=== PATIENT | male | born 1960 | race Caucasian/White ===

== ENCOUNTER 2017-02-20 04:11 | Observation (INO) | payer OTHER ==
[~2017-02-20] VITALS: Ht 185.4 cm; Wt 120.6 kg
--- NOTE | ~2017-02-20 | EKG ---
PATIENT: ADWOA ZUNIGA UNIT #: [id number] Ventricular Rate: 54 BPM Atrial Rate: 54 BPM P-R Interval: 184 ms QRS Duration: 94 ms Q-T Interval: 444 ms QTC Calculation(Bezet): 421 ms P [place]: 26 degrees Calculated R [place]: 7 degrees Calculated T [place]: 28 degrees Diagnosis Line: Sinus bradycardia Diagnosis Line: Otherwise normal ECG Diagnosis Line: When compared with ECG of 21-OCT-2011 20:20, Diagnosis Line: Vent. rate has decreased BY 26 BPM Diagnosis Line: Nonspecific T wave abnormality now evident in Diagnosis Line: Inferior leads Diagnosis Line: Confirmed by REJI DURBIN MD ([id number]) on Diagnosis Line: 02/20/2017 2:02:24 PM INTERPRETING MD: GIFYT RIOS
--- NOTE | ~2017-02-20 | EKG ---
PATIENT: ADWOA ZUNIGA UNIT #: [id number] Ventricular Rate: 48 BPM Atrial Rate: 48 BPM P-R Interval: 196 ms QRS Duration: 106 ms Q-T Interval: 424 ms QTC Calculation(Bezet): 378 ms P [place]: 48 degrees Calculated R [place]: 44 degrees Calculated T [place]: 48 degrees Diagnosis Line: Marked sinus bradycardia Diagnosis Line: Early repolarization Diagnosis Line: Abnormal ECG Diagnosis Line: When compared with ECG of 21-FEB-2017 05:46, Diagnosis Line: (unconfirmed) Diagnosis Line: No significant change was found Diagnosis Line: Confirmed by VIKAS RUIZ MD ([id number]) on Diagnosis Line: 02/22/2017 9:37:07 AM INTERPRETING MD: SARA RIOS
--- NOTE | ~2017-02-20 | HP ---
Unit #: [id number] #: [id number] Patient: ADWOA ZUNIGA [id number] [facility]. [place], [place] [address] [id number] E MR#: [id number] NAME: ADWOA ZUNIGA ROOM: Age: 56 Sex: M Admission Date: 02/20/2017 : 1960 Attending Physician: Miguel Scott M.D. Primary Care Physician: Helder Jorgensen M.D. HISTORY AND PHYSICAL HISTORY OF PRESENT ILLNESS This 56-year-old white male patient, woke up this morning with moderately severe pressure in the middle of the chest, worse when taking a deep breath, and lays down, it radiates to the left arm, associated with the tingling of the arms. The patient was dyspneic. He has no diaphoresis. He has history of SVT and ablation about ten years ago by Dr. Guzman. He denies any hypertension, diabetes, or (1) . EKG is normal. CT scan of the chest negative for PE protocol, troponins are negative. Previously he smoked five cigarettes per day for several years, quit six years ago. 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 FAMILY HISTORY Mother has congestive heart failure on pacemaker. ALLERGIES No known drug allergies. PAST SURGERIES 1. Cervical fusion in November 2016. 2. Patient had history of heart catheterization three or four years ago at [facility] and apparently had no blockages. HOME MEDICATIONS Include Toprol XL REVIEW OF SYSTEMS CONSTITUTIONAL: No fevers, chills, night sweats, or weight loss. All is negative except as mentioned above. PHYSICAL EXAMINATION GENERAL APPEARANCE: The patient is well-developed. VITAL SIGNS: Blood pressure 133/82, heart rate 62 per minute, respiratory rate 16 per minute. HEENT: Mouth: Oral mucosa is without cyanosis or pallor. No xanthelasma. NECK: No jugular venous distention. CARDIOVASCULAR: Regular rate and rhythm. PMI is not displaced on auscultation. S1 and S2 normal. No S3 or S4. No murmurs, rubs, or clicks noted. VASCULAR: Carotids are brisk without bruit. Abdominal aorta without bruits. Femoral and pedal pulses are normal, within normal pulse amplitude. LUNGS: Clear to auscultation without rales, rhonchi, or wheezes, or accessory muscle use noted. ABDOMEN: Soft and nontender. No hepatosplenomegaly. Unit #: [id number] #: [id number] Patient: ADWOA ZUNIGA SR RECTAL: Deferred. EXTREMITIES: Warm and dry. No cyanosis or clubbing. No pedal edema. MUSCULOSKELETAL: No scoliosis. DERMATOLOGY: No stasis dermatitis. NEUROLOGIC: Alert and oriented x3, pleasant affect. DIAGNOSTIC STUDIES LABORATORY: Glucose 99, BUN 18, creatinine 0.9, sodium 137, potassium 3.6. WBC 6.7, hemoglobin 13.2, hematocrit is 39.6, platelet count 212,000. IMPRESSION Chest pain possible pericarditis, rule out coronary artery disease, history of SVT and ablation. PLAN The patient's EKG and cardiac enzymes will be monitored, will get an echocardiogram and schedule him for a Lexiscan Cardiolite study in the morning. Dictated by Angelic Capps/jadiel TD: 02/20/2017 10:56 JOB #: [id number] HISTORY AND PHYSICAL Page 1 of 1 X Ana Christy MD HISTORY AND PHYSICAL
--- NOTE | ~2017-02-20 | CT16 ---
[facility] A Service of [facility] RADIOLOGY TEXT RESULTS PATIENT: ADWOA ZUNIGA LOCATION: [facility] [id number] : [birth year] UNIT #: [id number] AGE: [address]: Ana Christy MD SEX: M ORDER DR: [id number] [place], [place] [address] [id number] E MR#: [id number] Acc #: [id number] NAME: ADWOA ZUNIGA, : 1960 SEX: M STUDY DATE/TIME: 02/20/2017 7:17 UNIT: CASIMIRO ROOM: STUDY DESCRIPTION: CT Angio Chest for PE Attending Physician: Miguel Scott M.D. Ordering Physician: [facility] Primary Care Physician: Helder Jorgensen M.D. MEDICAL IMAGING REPORT This report is preliminary unless electronic signature is present EXAM CTA chest INDICATIONS Chest pain. Prominence of the chest. TECHNIQUE CT angiography of the chest utilizing 100 mL Isovue-370 IV contrast. Coronal 3-D MIP reconstructions and standard sagittal reconstructions were obtained. This CT exam was performed with one or more of the following radiation dose reduction techniques: automatic exposure control, adjustment of mA and/or kV according to patient size, and iterative reconstruction. COMPARISON Chest radiograph 02/20/2017 and 09/11/2016. FINDINGS No pulmonary embolus. No thoracic aortic aneurysm or dissection. No pericardial or pleural effusion. No enlarged mediastinal or hilar lymph nodes. There are several noncalcified pulmonary nodules scattered throughout both lungs. These are likely benign granulomas. There is an index 5 mm lesion in the superior segment right lower lobe (image 77). There is a second index lesion in the anterior right upper lobe measuring 0.5 cm on image 70. Central airways are patent. No acute osseous abnormalities. Limited images of the upper abdomen were obtained. No acute findings. IMPRESSION [facility] A Service of [facility] & [facility] RADIOLOGY TEXT RESULTS PATIENT: ADWOA ZUNIGA LOCATION: [facility] [id number] : [birth year] UNIT #: [id number] AGE: [address]: Ana Christy MD SEX: M ORDER DR: 1. Negative for pulmonary embolus. 2. No acute findings in the chest. 3. Multiple small pulmonary nodules scattered throughout both lungs. These are likely benign granulomas, however I would recommend precautionary follow-up study in 6-12 months to further evaluate and confirm a benign etiology. Dictated by... Yemi Woods M.D. THIS IS AN ELECTRONICALLY VERIFIED REPORT Yemi Woods M.D. at 02/20/2017 2:14 PM RPC/betsy TD: 02/20/2017 09:41 JOB #: [id number] MEDICAL IMAGING REPORT Page 1 of 1 COPY
--- NOTE | ~2017-02-20 | DS ---
Unit #: [id number] #: [id number] Patient: ADWOA ZUNIGA [id number] [address] [id number] I MR#: [id number] NAME: ADWOA ZUNIGA SR ROOM: 565 Age: 56 Sex: M Admission Date: 02/20/2017 : 1960 Discharge Date: 02/22/2017 Attending Physician: Ana Christy M.D. Primary Care Physician: Helder Jorgensen M.D. DISCHARGE SUMMARY DISCHARGE DIAGNOSES 1. Atypical chest pain, possible precordial. 2. Multiple small lung nodules. 3. Asymptomatic sinus bradycardia. 4. Ejection fraction 55%. 5. Chronic pain syndrome. 6. History of supraventricular tachycardia, status post ablation. PROCEDURES 1. The patient had a 2D echocardiogram on February 20, 2017, which showed left ventricle is normal in size. No regional wall motion abnormalities, mild concentric left ventricular hypertrophy. Overall left ventricular function is normal with an EF of 55%. No evidence of left ventricular mass or thrombus noted. Tricuspid valve is structurally normal. 2. The patient underwent a Lexiscan Cardiolite stress test which showed no ischemia. HOSPITAL COURSE The patient is a 56-year-old man who presented to the hospital after he woke up with severe chest pressure in the middle of his chest that was work with taking a deep breath lying down that radiated to his left arm. He also has some complaint that he had tingling sensation of both of his arms and was dyspneic. He had no diaphoresis. He presented to the emergency department for further workup. The patient underwent a Lexiscan Cardiolite stress test which was normal. He underwent a 2D echocardiogram which was essentially normal and showed an EF of 55%. Likely, the source of patient's chest pain is atypical musculoskeletal versus pericardial. The patient was started on colchicine and had shown improvement in his chest pain. Today, the patient is awake, alert, in no acute distress. Dr. Mchugh has seen and evaluated the patient. Vital signs are temperature 98.5, heart rate 48, respirations 18, blood pressure 112/63, oxygenating 97%. He is hemodynamically stable and ready for discharge per Dr. Mchugh. DISCHARGE FOLLOWUP INSTRUCTIONS 1. The patient will be discharged home. 2. Patient will follow with Dr. Guzman in four weeks. 3. Healthy heart diet. 4. Activity as tolerated. 5. Patient to seek medical attention or return to the ER if signs or symptoms worsen. Unit #: [id number] #: [id number] Patient: ADWOA ZUNIGA SR DISCHARGE MEDICATIONS 1. Toprol XL 12.5 mg p.o. daily. 2. Colchicine 0.6 mg p.o. b.i.d. for four weeks. 3. Lipitor 20 mg p.o. daily. 4. Aspirin 81 mg p.o. daily. Time spent - 25 minutes. Dictated by... Renetta Zuniga A.P.R.N. for Alma Mchugh M.D. AM/delbert TD: 02/22/2017 11:48 JOB #: [id number] DISCHARGE SUMMARY Page 1 of 1 X Renetta Zuniga APRN X DISCHARGE SUMMARY
--- NOTE | ~2017-02-20 | ST ---
Unit #: [id number] #: [id number] Patient: ADWOA ZUNIGA SR [id number] [address] [id number] I MR#: [id number] NAME: ADWOA ZUNIGA SR : 1960 SEX: M STUDY DATE/TIME: 02/21/2017 UNIT: [facility] ROOM: 565 STUDY DESCRIPTION: Attending Physician: Ana Christy M.D. Primary Care Physician: Helder Jorgensen M.D. CARDIOLOGY REPORT EXAM Lexiscan Cardiolite stress test FINDINGS The baseline EKG shows sinus bradycardia with a rate of 54 beats per minute with ST elevation in AVL, as well as the anterior leads most consistent with early repolarization. Lexiscan was injected immediately followed by Cardiolite. The patient had complaint of chest pain, that has been constant since the prior day rated 3/10 with no changes during the test. He has significant nausea. Lexiscan was injected immediately followed by Cardiolite. Maximum blood pressure response was 125/70 mmHg. In the recovery, blood pressure 120/68 mmHg. Please correlate these results with the nuclear images. Dictated by... Quinn Harp TD: 02/21/2017 15:47 JOB #: [id number] CARDIOLOGY REPORT Page 1 of 1 X Anderson Dickinson APRN CARDIOLOGY REPORT
--- NOTE | ~2017-02-20 | CR72 ---
[facility] A Service of [facility] & [facility] RADIOLOGY TEXT RESULTS PATIENT: ADWOA ZUNIGA LOCATION: [address] [address] : [birth year] UNIT #: [id number] AGE: [address]: Ana Christy MD SEX: M ORDER DR: [id number] [place], [place] [address] [id number] E MR#: [id number] Acc #: [id number] NAME: ADWOA ZUNIGA SR : 1960 SEX: M STUDY DATE/TIME: 02/20/2017 4:45 UNIT: CAS[place]IRO ROOM: STUDY DESCRIPTION: CR Chest Single View Portable Attending Physician: Miguel Scott M.D. Ordering Physician: Ed Doctor [id number] [facility] Primary Care Physician: Helder Jorgensen M.D. MEDICAL IMAGING REPORT This report is preliminary unless electronic signature is present EXAM Portable chest INDICATIONS Chest pain and shortness of air today. PROCEDURE Frontal view of the chest COMPARISON 09/11/2016 FINDINGS Heart size unchanged. No dense consolidation pleural fluid or pneumothorax. IMPRESSION No active process. Dictated by... Jhonny Wolff M.D. THIS IS AN ELECTRONICALLY VERIFIED REPORT Jhonny Wolff M.D. at 02/20/2017 9:55 PM VIKY/jaclyn TD: 02/20/2017 09:04 JOB #: [id number] MEDICAL IMAGING REPORT Page 1 of 1 COPY
--- NOTE | ~2017-02-20 | TH ---
Unit #: [id number] #: [id number] Patient: ADWOA ZUNIGA SR [id number] [address] [id number] I MR#: [id number] NAME: ADWOA ZUNIGA SR : 1960 SEX: M STUDY DATE/TIME: 02/21/2017 UNIT: [facility] ROOM: 565 STUDY DESCRIPTION: Attending Physician: Ana Christy M.D. Primary Care Physician: Helder Jorgensen M.D. CARDIOLOGY REPORT EXAM Nuclear study. DESCRIPTION This 56-year-old patient received 0.4 mg of Lexiscan intravenously followed by 32.9 mCi of technetium 99m Cardiolite, and images were obtained according to the standard SPECT protocol. For rest images, 10.77 mCi of Cardiolite was injected. Images were reviewed in both phases. FINDINGS Overall study quality is excellent. LV cavity size is normal in both images. There is no lung activity. RV is normal. Rotating raw data showed no significant artifact or GI uptake. Review of the SPECT images showed normal homogeneous radiotracer concentration throughout the myocardium in both the stress and rest images. A small, fixed, inferior defect probably is tissue artifact. Gated images showed normal LV wall thickening and wall motion with an estimated LV ejection fraction of 57%. IMPRESSION 1. Myocardial perfusion imaging is normal. 2. No evidence of ischemia or infarct. 3. Normal left ventricle dimensions. 4. Normal systolic left ventricular function with an estimated left ventricular ejection fraction of 57%. 1. Dictated by... Angelic Capps/mary TD: 02/21/2017 17:10 JOB #: [id number] CARDIOLOGY REPORT Page 1 of 1 X Ana Christy MD CARDIOLOGY REPORT
--- NOTE | ~2017-02-20 | EKG ---
PATIENT: ADWOA ZUNIGA UNIT #: [id number] Ventricular Rate: 55 BPM Atrial Rate: 55 BPM P-R Interval: 184 ms QRS Duration: 110 ms Q-T Interval: 420 ms QTC Calculation(Bezet): 401 ms P [place]: 38 degrees Calculated R [place]: 38 degrees Calculated T [place]: 43 degrees Diagnosis Line: Sinus bradycardia Diagnosis Line: Early repolarization Diagnosis Line: Otherwise normal ECG Diagnosis Line: When compared with ECG of 20-FEB-2017 04:15, Diagnosis Line: no new changes Diagnosis Line: Confirmed by MICHAEL LARSON MD ([id number]) on Diagnosis Line: 02/22/2017 12:18:18 PM INTERPRETING MD: JESENIA
[~2017-02-20 04:11] MED LIST: METOPROLOL TAR25 MG PO; TOPROL XL PO
[2017-02-20 05:06] LABS: POC - CKMB 1.5 ng/mL (0.0-7.9); POC - TROPONIN <0.05 ng/mL (<=0.05)
[2017-02-20 05:11] LABS: BASOPHIL# 0.1 X10e3 (0-0.3); BASOPHIL% 1.1 % (0-2.5); EOSINOPHIL# 0.3 X10e3 (0-0.7); EOSINOPHIL% 4.3 % (0.0-7.0); HEMATOCRIT 39.6 % (38.0-50.0); HEMOGLOBIN 13.2 gm/dL (13.0-16.0); LYMPHOCYTE# 2.1 X10e3 (1.0-3.5); LYMPHOCYTE% 31.1 % (17.0-45.0); MEAN CELL VOLUME 91.6 FL (83-96); MEAN CORPUSCULAR HEMOGLOBIN 30.6 PG (28-34); MEAN CORPUSCULAR HGB CONC 33.4 g/dL (30-36); MEAN PLATELET VOLUME 8.3 FL (6.5-11.5); MONOCYTE# 0.6 X10e3 (0-1.0); MONOCYTE% 9.7 % (3.0-12.0); NEUTROPHIL# 3.6 X10e3 (1.5-7.1); NEUTROPHIL% 53.8 % (40-75); PLATELET COUNT 212 X10e3 (140-420); RED BLOOD COUNT 4.32 X10e (3.90-5.60); RED CELL DISTRIBUTION WIDTH 13.5 % (11.0-15.5); WHITE BLOOD COUNT 6.7 X10e3 (4.0-10.5)
[2017-02-20 05:12] LABS: DIFF IND NO
[2017-02-20 05:24] LABS: PROTHROMBIN TIME (PATIENT) 10.7 SECONDS (10.0-11.7)
[2017-02-20 05:39] LABS: ALBUMIN SERUM 3.7 g/dL (3.5-5.0); ALKALINE PHOSPHATASE 47 U/L (32-92); ALT (SGPT) 20 U/L (10-40); AST (SGOT) 18 U/L (10-42); BILIRUBIN, DIRECT <0.1 mg/dL (0.0-0.2); BILIRUBIN,INDIRECT 0.5 mg/dL (0.0-0.9); BILIRUBIN,TOTAL 0.6 mg/dL (0.2-2.0); BLOOD UREA NITROGEN 18 mg/dL (9-23); CALCIUM SERUM 8.8 mg/dL (8.4-10.2); CARBON DIOXIDE 24 mmol/L (22-31); CHLORIDE 106 mmol/L (100-111); CREATININE SERUM 0.9 mg/dL (0.6-1.4); GLOM FILT RATE Estimated 95.1 mL/min (>60); GLUCOSE FASTING 99 mg/dL (70-110); POTASSIUM 3.6 mmol/L (3.5-5.1); PROTEIN TOTAL SERUM 6.5 g/dL (6.0-8.3); SODIUM 137 mmol/L (135-145)
[2017-02-20 06:49] LABS: POC - CKMB 2.5 ng/mL (0.0-7.9); POC - TROPONIN <0.05 ng/mL (<=0.05)
[2017-02-22] MEDS ORDERED: COLCHICINE PO (12:17)
[2017-02-22] MEDS ORDERED: LIPITOR20 MG PO (12:18)
[2017-02-22] MEDS ORDERED: ASPIRIN81 MG PO (12:19)
[2017-02-22] MEDS ORDERED: TOPROL XL PO (12:22)
== END 2017-02-22 13:16 | disposition home or self-care (01) | DRG 313 ==
LOC: CED 04:11 → C5C 09:09 → CEDOF 09:09 → C5C 12:04
PROVIDERS: Emergency Medicine
DX: R07.89 Other chest pain (principal); R91.8 Other nonspecific abnormal finding of lung field; R00.1 Bradycardia, unspecified; G89.4 Chronic pain syndrome; I51.7 Cardiomegaly; Z82.49 Family history of ischemic heart disease and other diseases of the circulatory system; Z87.891 Personal history of nicotine dependence; Z79.899 Other long term (current) drug therapy; Z98.890 Other specified postprocedural states
CPT/HCPCS: 36415; 71010; 71275; 78452; 80048; 80076; 82553; 84484; 85025; 85610; 85730; 93005; 93017; 93306; 96372; 96374; 96375; 96376; 99285; A9500; G0378; J1650; J1885; J2270; J2405; J2785; Q9967